=== PATIENT | male | born 1985 | race Caucasian/White ===

== ENCOUNTER 2017-07-13 07:25 | Emergency (ER) | payer OTHER ==
[2017-07-13] MEDS ORDERED: ACETAMINOPHEN 325 MG TABLET PO ONE (07:33)
[2017-07-13] MEDS ORDERED: OXYCODONE HCL IR 5 MG TABLET PO ONE (07:47)
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
[2017-07-13 09:58] VITALS: BP 126/63
== END 2017-07-13 09:57 | disposition home or self-care (01) ==
LOC: ER 07:25
DX: S00.83XA Contusion of other part of head, initial encounter (principal); S00.91XA Abrasion of unspecified part of head, initial encounter; M54.5 Low back pain; M79.671 Pain in right foot; M79.672 Pain in left foot; V49.49XA Driver injured in collision with other motor vehicles in traffic accident, initial encounter
CPT/HCPCS: 72070; 72100; 99283

== ENCOUNTER 2017-11-23 00:08 | Emergency (ER) | payer SELFPAY ==
--- NOTE | 2017-11-23 00:35 | ER Document Report ---
ED General - General Chief Complaint: Overdose Stated Complaint: RESPIRATORY DISTRESS Time Seen by Provider: 11/23/17 00:33 Notes: Patient is a 32-year-old male without chronic medical problems who presents after an opiate overdose. The patient was apparently found unresponsive, centrally cyanotic. Bystanders are doing chest compressions but EMS reports that the patient had a pulse on their initial assessment. 2 mg of naloxone was administered and the patient immediately began breathing normally and became alert, oriented and responsive. The patient denies any use of opiates today. The patient states that he only smoked marijuana. In the setting of privacy, I continue to press the patient regarding this report particularly given that his response to naloxone in the setting of his initial symptoms is pathognomonic for opiate overdose. The patient continues to state the only thing that he did smoke marijuana today. He does admit to intermittent abuse of Percocet. He denies taking any pills today. He does admit to alcohol use today. He denies any current symptoms other than feeling dehydrated. History is otherwise somewhat limited from the patient as he does not recall the events prior to arrival. He currently denies any shortness of breath, chest pain, headache or neck pain. No focal weakness or numbness. Nothing improves or worsens his symptoms. TRAVEL OUTSIDE OF THE [place] IN LAST 30 DAYS: No - Related Data Allergies/Adverse Reactions: amoxicillin Allergy (Mild, Verified 07/13/17 08:03) Hives Past Medical History - General Information source: Patient - Social History Smoking Status: Current Every Day Smoker Frequency of alcohol use: Occasional Drug Abuse: Marijuana, Prescription drugs Family History: Reviewed & Not Pertinent Renal/ Medical History: Denies: Hx Peritoneal Dialysis Past Surgical History: Reports: Hx Appendectomy - Immunizations Hx Diphtheria, Pertussis, Tetanus Vaccination: Yes Review of Systems - Review of Systems Notes: Constitutional: Negative for fever. HENT: Negative for sore throat. Eyes: Negative for visual changes. Cardiovascular: Negative for chest pain. Respiratory: Negative for shortness of breath. Gastrointestinal: Negative for abdominal pain, vomiting or diarrhea. Genitourinary: Negative for dysuria. Musculoskeletal: Negative for back pain. Skin: Negative for rash. Neurological: Negative for headaches, weakness or numbness. 10 point ROS negative except as marked above and in HPI. Physical Exam - Vital signs Vitals: Resp BP Pulse Ox 16 160/96 H 97 11/23/17 00:14 08/26/18 00:14 11/23/17 00:14 Interpretation: Tachycardic Notes: PHYSICAL EXAMINATION: GENERAL: Appears somewhat fatigued but in no distress HEAD: Atraumatic, normocephalic. EYES: Pupils equal round and reactive to light, extraocular movements intact, sclera anicteric, conjunctiva are normal. ENT: nares patent, oropharynx clear without exudates. Dry mucous membranes. NECK: Normal range of motion, supple without lymphadenopathy LUNGS: Breath sounds clear to auscultation bilaterally and equal. No wheezes rales or rhonchi. HEART: Regular tachycardia without murmurs ABDOMEN: Soft, nontender, normoactive bowel sounds. No guarding, no rebound. No masses appreciated. EXTREMITIES: Normal range of motion, no pitting or edema. No cyanosis. NEUROLOGICAL: No focal neurological deficits. Moves all extremities spontaneously and on command. PSYCH: Normal mood, normal affect. SKIN: Warm, Dry, normal turgor, no rashes or lesions noted. Course - Re-evaluation Re-evalutation: 11/23/17 00:33 Patient presents after an acute opiate overdose, reversed in the field by EMS with naloxone. Patient continuously denies opiate use despite being directly confronted with that he was apneic and required Narcan and had a significant response to this medication. Patient presents nontoxic in appearance, in no distress. I had an extensive conversation with the patient about the dangers opiate abuse, have emphasized that they are never going to be certain what they are self administering particularly given the high rates of fentanyl in our community. Rehab resources have been offered. No indication for labs or imaging. Patient has remained awake, alert, oriented without any evidence of somnolence, hypoventilation or bradycardia to suggest ongoing opiate intoxication that would warrant further observation. At this time will discharge with return precautions and follow-up recommendations. Verbal discharge instructions given a the bedside and opportunity for questions given. Medication warnings reviewed. Patient is in agreement with this plan and has verbalized understanding of return precautions and the need for primary care follow-up in the next 24-72 hours. 11/23/17 02:50 - Vital Signs Vital signs: Temp Pulse Resp BP Pulse Ox 13 132/88 H 95 11/23/17 02:30 11/23/17 02:00 11/23/17 02:30 - EKG Interpretation by Me Additional EKG results interpreted by me: 11/23/17 02:50 Sinus tachycardia. Rate 115. No ST elevations or depressions. QTC is 437. Discharge - Discharge Clinical Impression: Dehydration Opiate overdose Qualifiers: Encounter type: initial encounter Injury intent: undetermined intent Qualified Code(s): T40.604A - Poisoning by unspecified narcotics, undetermined, initial encounter Condition: Stable Disposition: HOME, SELF-CARE Additional Instructions: You were seen today for an opiate overdose. Please never use opiates of any kind. Over 190 people every day in the [place] from opiate overdoses. Do not become a statistic. You should urgently seek rehab or a similar resource. You can call 0-317-226-NsGene to find local resources. Return if you have any symptoms that are concerning to you including difficulty breathing, fever, persistent vomiting, or any other symptoms that are concerning to you.
[2017-11-23 02:33] VITALS: BP 132/88
--- NOTE | 2017-11-24 08:12 | EKG REPORT ---
SEVERITY:- BORDERLINE ECG - SINUS TACHYCARDIA BORDERLINE ST ELEVATION, ANTERIOR LEADS : Confirmed by: Sadi Kline MD 24-Nov-2017 08:11:30
== END 2017-11-23 02:46 | disposition home or self-care (01) ==
LOC: ER 00:08
DX: T40.601A Poisoning by unspecified narcotics, accidental (unintentional), initial encounter (principal); E86.0 Dehydration; R00.0 Tachycardia, unspecified; F17.200 Nicotine dependence, unspecified, uncomplicated; Z88.0 Allergy status to penicillin
CPT/HCPCS: 93005; 93010; 99285

== ENCOUNTER 2018-07-21 18:56 | Emergency (ER) | payer SELFPAY ==
[2018-07-21] MEDS ORDERED: HYDROCODONE/ACETAMINOPHEN 5-325 MG (6 TAB/ER DISP) PO PRN (20:52)
[2018-07-21] MEDS ORDERED: IBUPROFEN 800 MG TABLET PO ONE (20:52)
[2018-07-21] MEDS ORDERED: SULFAMETHOXAZOLE/TRIMETHOPRIM 800-160 MG TABLET PO ONE (20:55)
[2018-07-21] MEDS ORDERED: HYDROCODONE/ACETAMINOPHEN 5-325 MG TABLET PO ONE (20:56)
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
[2018-07-21 21:15] VITALS: BP 133/76
== END 2018-07-21 21:18 | disposition home or self-care (01) ==
LOC: ER 18:56
DX: L01.00 Impetigo, unspecified (principal); M54.41 Lumbago with sciatica, right side; M79.604 Pain in right leg; M25.561 Pain in right knee; F17.200 Nicotine dependence, unspecified, uncomplicated
CPT/HCPCS: 99283

== ENCOUNTER 2018-09-11 01:55 | Observation (INO) | payer SELFPAY ==
[2018-09-11] MEDS ORDERED: ONDANSETRON HCL INJ/PF 4 MG/2 ML SDV IV ONE ×2 (02:30→03:39)
--- NOTE | 2018-09-11 02:30 | ER Document Report ---
ED General <EMELY FINK E - Last Filed: 09/11/18 05:32> - General TRAVEL OUTSIDE OF THE [place] IN LAST 30 DAYS: No <SILVIA LORENZ C - Last Filed: 09/11/18 12:31> - General Chief Complaint: Possible Overdose Stated Complaint: POSSIBLE OVERDOSE, HEADACHE Time Seen by Provider: 09/11/18 02:21 Notes: Patient is a 33-year-old male that presents to the emergency department for chief complaint of potential syncopal episode versus overdose. Patient apparently was by EMS, unresponsive, cyanotic, he was given bystander CPR but apparently to have a pulse, and was given a total of 3 mg of Narcan, and he is more responsive and alert, he did vomit, is now complaining of a headache. He denies using illicit drugs, adamantly denies using any opiates. He states he does smoke cigarettes he did drink some alcohol this evening, but only about 36 ounces. He states he was sleeping, he woke up he was surrounded by the paramedics. He does not recall any other events. She has had episodes like this in the past, where he is passed out but unresponsive, and is not sure of th e cause. Apparently his girlfriend who called EMS, per EMS they did not think that the Narcan was the contributing factor to him improving, but from providing supplemental oxygen. Past Medical History: Chronic pancreatitis Past Surgical History: Appendectomy Social History: Admits to smoking cigarettes and occasional alcohol use, admits marijuana use, denies any other illicit drug use. Family History: Reviewed and noncontributory for presenting illness Allergies: Reviewed, see documented allergy list. REVIEW OF SYSTEMS: Other than noted above, the 12 point review of systems was reviewed with the patient and were negative, all pertinent findings are included in the HPI. PHYSICAL EXAMINATION: Vital signs reviewed, nursing noted reviewed. GENERAL: Patient is awake, oriented, in no acute distress HEAD: Atraumatic, normocephalic. EYES: Eyes appear normal, extraocular movements intact, sclera anicteric, conjunctiva are normal. ENT: nares patent, oropharynx clear without exudates. Moist mucous membranes. NECK: Normal range of motion, supple without lymphadenopathy LUNGS: Breath sounds clear to auscultation bilaterally and equal. No wheezes rales or rhonchi. HEART: Heart rate tachycardic, regular rhythm, no audible murmurs ABDOMEN: Soft, nontender, normoactive bowel sounds. No rebound, guarding, or rigidity. No masses appreciated. EXTREMITIES: Nontender, good range of motion, no pitting or edema. NEUROLOGICAL: No focal neurological deficits. Moves all extremities spontaneously Motor and sensory grossly intact on exam. PSYCH: Normal mood, normal affect. SKIN: Warm, Dry, normal turgor, no rashes or lesions noted on exposed skin (SILVIA LORENZ) - Related Data Allergies/Adverse Reactions: amoxicillin Allergy (Mild, Verified 07/13/17 08:03) Hives Past Medical History - Social History Smoking Status: Current Every Day Smoker Family History: Reviewed & Not Pertinent Renal/ Medical History: Denies: Hx Peritoneal Dialysis Past Surgical History: Reports: Hx Appendectomy - Immunizations Hx Diphtheria, Pertussis, Tetanus Vaccination: Yes <SILVIA LORENZ - Last Filed: 09/11/18 12:31> - Vital signs Vitals: Temp Resp BP Pulse Ox 98.6 F 12 147/93 H 94 09/11/18 02:02 09/11/18 02:02 09/11/18 02:02 09/11/18 02:02 Course - Laboratory Result Diagrams: 09/11/18 02:25 09/11/18 02:25 <EMELY FINK - Last Filed: 09/11/18 05:32> - Laboratory Result Diagrams: 09/11/18 02:25 09/11/18 02:25 <SILVIA LORENZ - Last Filed: 09/11/18 12:31> - Re-evaluation Re-evalutation: Patient seen and examined vital signs reviewed. Laboratory data and/or imaging were ordered as appropriate for the patient's presenting symptoms and complaint, with consideration of any critical or life threatening conditions that may be associated with their obtained history and exam as noted above. Patient's prior visits reviewed, patient had a suspected opiate overdose, almost a year ago, but did not have blood work or urine testing at the time of confirming, patient adamantly denies that he is never used hard drugs, he states that he rarely smokes marijuana, he admits that he takes Adderall on occasion, but denies using methamphetamines. Patient was treated with IV fluids Results were reviewed when available and demonstrated slightly elevated troponin, will order repeat, head CT negative, patient's history is concerning, as having frequent syncopal episodes, and was found hypoxic by EMS today and nearly unresponsive, and feel that this should be worked up sooner than later and have the patient admitted to the hospital for syncopal evaluation, and seen by cardiology which the patient was agreeable to. The patient was re-evaluated and was stable, still mild tachycardia, but improved. Evaluation was most consistent with syncope and respiratory arrest, patient improved after given supplemental oxygen, and IVF, however as noted his story is concerning and he has had other syncopal episodes according to his father when he did not seek medical attention. He has not had history of seizures, nor they have been reported in the past, but this is also a possibility. At this point I feel the patient should be observed in the hospital for further evaluation and treatment as his story and events that occurred are concerning. Patient was agreeable, call was placed to the hospitalist for admission. Awaiting call back I signed this patient out to my colleague Dr. Jacki Fink, to admit for syncope, and apneic episode. *Note is created using voice recognition software and may contain spelling, syntax or grammatical errors. Laboratory 09/11/18 09/11/18 09/11/18 02:25 02:25 02:25 WBC 10.5 RBC 5.18 Hgb 15.3 Hct 44.5 MCV 86 MCH 29.6 MCHC 34.5 RDW 13.2 Plt Count 330 Seg Neutrophils % 82.7 H Lymphocytes % 10.6 L Monocytes % 6.2 Eosinophils % 0.1 Basophils % 0.4 Absolute Neutrophils 8.7 H Absolute Lymphocytes 1.1 Absolute Monocytes 0.6 Absolute Eosinophils 0.0 Absolute Basophils 0.0 Sodium 139.7 Potassium 4.1 Chloride 102 Carbon Dioxide 26 Anion Gap 12 BUN 8 Creatinine 0.95 Est GFR ( Amer) > 60 Est GFR (Non-Af Amer) > 60 Glucose 168 H Calcium 8.6 Total Bilirubin 0.4 Direct Bilirubin 0.3 Neonat Total Bilirubin Not Reportable Neonat Direct Bilirubin Not Reportable Neonat Indirect Bili Not Reportable AST 21 ALT 22 Alkaline Phosphatase 84 Creatine Kinase 76 Troponin I 0.034 Total Protein 7.1 Albumin 4.2 Urine Color Urine Appearance Urine pH Ur Specific [place] Urine Protein Urine Glucose (UA) Urine Ketones Urine Blood Urine Nitrite Urine Bilirubin Urine Urobilinogen Ur Leukocyte Esterase Urine WBC (Auto) Urine RBC (Auto) U Hyaline Cast (Auto) Squamous Epi Cells Auto U Non-Squamous Epis Auto Urine Mucus (Auto) Urine Ascorbic Acid Urine Opiates Screen Urine Methadone Screen Ur Barbiturates Screen Ur Phencyclidine Scrn Ur Amphetamines Screen U Benzodiazepines Scrn Urine Cocaine Screen U Marijuana (THC) Screen 09/11/18 09/11/18 03:45 03:45 WBC RBC Hgb Hct MCV MCH MCHC RDW Plt Count Seg Neutrophils % Lymphocytes % Monocytes % Eosinophils % Basophils % Absolute Neutrophils Absolute Lymphocytes Absolute Monocytes Absolute Eosinophils Absolute Basophils Sodium Potassium Chloride Carbon Dioxide Anion Gap BUN Creatinine Est GFR ( Amer) Est GFR (Non-Af Amer) Glucose Calcium Total Bilirubin Direct Bilirubin Neonat Total Bilirubin Neonat Direct Bilirubin Neonat Indirect Bili AST ALT Alkaline Phosphatase Creatine Kinase Troponin I Total Protein Albumin Urine Color YELLOW Urine Appearance CLOUDY Urine pH 5.0 Ur Specific [place] 1.019 Urine Protein 100 H Urine Glucose (UA) NEGATIVE Urine Ketones NEGATIVE Urine Blood NEGATIVE Urine Nitrite NEGATIVE Urine Bilirubin NEGATIVE Urine Urobilinogen NEGATIVE Ur Leukocyte Esterase NEGATIVE Urine WBC (Auto) 54 Urine RBC (Auto) 5 U Hyaline Cast (Auto) 135 Squamous Epi Cells Auto 3 U Non-Squamous Epis Auto 2 Urine Mucus (Auto) MANY Urine Ascorbic Acid NEGATIVE Urine Opiates Screen NEGATIVE Urine Methadone Screen NEGATIVE Ur Barbiturates Screen NEGATIVE Ur Phencyclidine Scrn NEGATIVE Ur Amphetamines Screen UNCONFIRMED POSITIVE U Benzodiazepines Scrn NEGATIVE Urine Cocaine Screen NEGATIVE U Marijuana (THC) Screen NEGATIVE Head CT 09/11/18 02:29 IMPRESSION: No acute intracranial abnormalities. 09/11/18 12:29 (SILVIA LORENZ) - Vital Signs Vital signs: Temp Pulse Resp BP Pulse Ox 97.9 F 96 16 132/77 H 98 09/11/18 08:28 09/11/18 08:28 09/11/18 08:28 09/11/18 08:28 09/11/18 08:28 - Laboratory Laboratory results interpreted by me: 09/11/18 09/11/18 09/11/18 02:25 02:25 03:45 Seg Neutrophils % 82.7 H Lymphocytes % 10.6 L Absolute Neutrophils 8.7 H Glucose 168 H Urine Protein 100 H - EKG Interpretation by Me Additional EKG results interpreted by me: EKG demonstrates ventricular rate of 106 bpm, normal axis, QTC 447 ms, no eviden ce of acute ischemia, compared with prior EKG from 11/23/2017, without significant change. (SILVIA LORENZ) Discharge - Discharge Admitting Provider: Shira (Hospitalist) Unit Admitted: IMCU <EMELY FINK - Last Filed: 09/11/18 05:32> <SILVIA LORENZ - Last Filed: 09/11/18 12:31> - Discharge Clinical Impression: Apnea Syncope Qualifiers: Syncope type: unspecified Qualified Code(s): R55 - Syncope and collapse Headache Qualifiers: Headache type: unspecified Headache chronicity pattern: acute headache Intractability: not intractable Qualified Code(s): R51 - Headache Condition: Stable Disposition: ADMITTED INPATIENT
[2018-09-11 02:34] LABS: ABSOLUTE LYMPHOCYTES (AUTO) 1.1 10^3/uL (0.5-4.7); ABSOLUTE MONOCYTES (AUTO) 0.6 10^3/uL (0.1-1.4); ABSOLUTE NEUT (AUTO) 8.7 10^3/uL (1.7-8.2); BASOPHILS % (AUTO) 0.4 % (0-2); EOSINOPHILS % (AUTO) 0.1 % (0-6); HEMATOCRIT 44.5 % (37.9-51.0); HEMOGLOBIN 15.3 g/dL (13.5-17.0); LYMPHOCYTES % (AUTO) 10.6 % (13-45); MEAN CORPUSCULAR HEMOGLOBIN 29.6 pg (27.0-33.4); MEAN CORPUSCULAR HGB CONC 34.5 g/dL (32.0-36.0); MEAN CORPUSCULAR VOLUME 86 fl (80-97); MONOCYTES % (AUTO) 6.2 % (3-13); PLATELET COUNT 330 10^3/uL (150-450); RED BLOOD COUNT 5.18 10^6/uL (4.35-5.55); RED CELL DISTRIBUTION WIDTH 13.2 % (11.5-14.0); SEGMENTED NEUTROPHILS % (AUTO) 82.7 % (42-78); TOTAL CELLS COUNTED % (AUTO) 100 %; WHITE BLOOD COUNT 10.5 10^3/uL (4.0-10.5)
[2018-09-11] MEDS: RINGERS SOLUTION,LACTATED 1,000 ML IV PRN ×2 (02:47→02:53)
[2018-09-11 02:58] LABS: ALANINE AMINOTRANSFERASE 22 U/L (21-72); ALBUMIN 4.2 g/dL (3.5-5.0); ALKALINE PHOSPHATASE 84 U/L (38-126); ANION GAP 12 (5-19); ASPARTATE AMINO TRANSFERASE 21 U/L (17-59); BILIRUBIN,DIRECT 0.3 mg/dL (0.0-0.4); BILIRUBIN,TOTAL 0.4 mg/dL (0.2-1.3); BLOOD UREA NITROGEN 8 mg/dL (7-20); CALCIUM 8.6 mg/dL (8.4-10.2); CARBON DIOXIDE 26 mmol/L (22-30); CHLORIDE 102 mmol/L (98-107); CREATINE KINASE 76 U/L (55-170); GLUCOSE 168 mg/dL (75-110); POTASSIUM 4.1 mmol/L (3.6-5.0); SODIUM 139.7 mmol/L (137-145); TOTAL PROTEIN 7.1 g/dL (6.3-8.2)
--- NOTE | 2018-09-11 03:43 | RADIOLOGY REPORT (SQ) ---
EXAM DESCRIPTION: CT HEAD WITHOUT IV CONTRAST COMPLETED DATE/TME: 09/11/2018 02:29 CLINICAL HISTORY: 33 years, Male, headache, syncope COMPARISON: None Available. Technique: Contiguous axial images of the brain were obtained without the administration of intravenous contrast. Coronal and sagittal reformats obtained and reviewed. This exam was performed according to our departmental dose-optimization program which includes use of Automated Exposure Control, adjustment of the mA and/or kV according to patient size and/or use of iterative reconstruction technique. Findings: Brain: No hemorrhage. No territorial infarct. No mass effect. No herniation. Ventricles: Within normal limits for patient's age. Bones: No acute osseous abnormality. Paranasal sinuses: Mucous retention cyst in the right maxillary sinus.. Mastoid air cells: Unremarkable. Soft tissues: No acute abnormality. IMPRESSION: No acute intracranial abnormalities.
[2018-09-11 04:21] LABS: APPEARANCE,URINE CLOUDY; BILIRUBIN,URINE NEGATIVE (NEGATIVE); COLOR,URINE YELLOW; GLUCOSE, URINE NEGATIVE (NEGATIVE); KETONES,URINE NEGATIVE (NEGATIVE); LEUKOCYTE ESTERASE,URINE NEGATIVE (NEGATIVE); NITRITE,URINE NEGATIVE (NEGATIVE); PROTEIN,URINE 100 mg/dL (NEGATIVE); URINE SPECIFIC GRAVITY 1.019; UROBILINOGEN,URINE NEGATIVE mg/dL (<2.0)
[2018-09-11 04:31] LABS: URINE AMPHETAMINES SCREEN UNCONFIRMED POSITIVE; URINE BARBITURATES SCREEN NEGATIVE; URINE BENZODIAZEPINES SCREEN NEGATIVE; URINE COCAINE SCREEN NEGATIVE; URINE MARIJUANA (THC) SCREEN NEGATIVE; URINE METHADONE SCREEN NEGATIVE; URINE PHENCYCLIDINE SCREEN NEGATIVE
--- NOTE | 2018-09-11 05:22 | RADIOLOGY REPORT (SQ) ---
EXAM DESCRIPTION: XR CHEST 1 VIEW COMPLETED DATE/TME: 09/11/2018 04:51 CLINICAL HISTORY: 33 years, Male, syncope Comparison: None FINDINGS: No focal lung consolidation. No pleural effusion. No pneumothorax. Cardiac and mediastinal silhouette is unremarkable. No acute osseous abnormality. Soft tissues are unremarkable. IMPRESSION: No acute findings. No focal lung consolidation.
[2018-09-11] MEDS ORDERED: ACETAMINOPHEN 325 MG TABLET PO ONE (05:28)
[2018-09-11] MEDS ORDERED: ONDANSETRON HCL INJ/PF 4 MG/2 ML SDV IV PRN (06:56)
[2018-09-11] MEDS ORDERED: MAGNESIUM HYDROXIDE SUSP 30 ML UDCUP PO PRN (06:56)
[2018-09-11] MEDS ORDERED: DOCUSATE SODIUM 100 MG CAPSULE PO PRN (06:56)
[2018-09-11] MEDS ORDERED: TRAMADOL HCL 50 MG TABLET PO PRN (06:56)
--- NOTE | 2018-09-11 06:56 | PDOC H&P ---
History of Present Illness Admission Date/PCP: 09/11/18 05:40 No local PCP Patient complains of: Found unconscious History of Present Illness: CESAR LANDON JR is a 33 year old male who presented to the emergency room via EMS having been found down at home by his girlfriend. His girlfriend noted that he appeared to be cyanotic and initiated CPR with chest compressions and then called EMS. Upon EMS arrival the patient was found to have a pulse but was cyanotic and in respiratory arrest, requiring several rescue breaths to be given by EMS prior to the resumption of spontaneous respiratory effort. Patient was given 3 mg of Narcan before recovering spontaneous respirations and had an ashleigh sis x1 after recovering his spontaneous respiration but prior to his emergency room arrival. At the present time the patient remembers only that he woke up surrounded by paramedics and other persons after laying down on the couch to sleep for a while. He admits having consumed about 36 ounces of beer but denies using any other drugs. He remembers waking from sleep on the couch and walking to get into bed with his girlfriend but apparently he "fell out" before he got into bed. He admits having prior similar "falling out episodes" and has not identified any aggravating or ameliorating factors for his "falling out episodes". The emergency room he was found to have a CT scan which was negative for acute changes chest x-ray which was negative for acute disease and an EKG that showed only mild sinus tachycardia. His urine drug screen was negative for opiates but did show an unconfirmed positive for amphetamine. A blood alcohol level was not performed by the emergency room physician. Patient was subsequently admitted to the hospital for further evaluation and treatment. Past Medical History Cardiac Medical History: Reports: Other - "Falling out episodes" Denies: Coronary Artery Disease, Hypertension Pulmonary Medical History: Denies: Asthma, Chronic Obstructive Pulmonary Disease (COPD), Respiratory Failure EENT Medical History: Denies: Cataracts, Ears - Hearing aids Neurological Medical History: Denies: Hemorrhagic CVA, Ischemic CVA, Multiple Sclerosis, Seizures Endocrine Medical History: Denies: Diabetes Mellitus Type 1, Diabetes Mellitus Type 2, Hyperthyroidism, Hypothyroidism Renal/ Medical History: Denies: Chronic Kidney Disease, Nephrolithiasis Malignancy Medical History: Reports: None GI Medical History: Denies: Cirrhosis, Hepatitis Musculoskeltal Medical History: Denies: Arthritis, Gout Skin Medical History: Denies: Eczema, Psoriasis Psychiatric Medical History: Reports: Substance Abuse, Tobacco Dependency Denies: Alcohol Dependency Traumatic Medical History: Reports: None Hematology: Denies: Anemia, Bleeding Tendencies Infectious Medical History: Reports: Methicillin-Resistant Staph Aureus - And leg wounds secondary to minor injuries received while fishing Past Surgical History Past Surgical History: Reports: Appendectomy Social History Information Source: Patient Lives with: Spouse/Significant other Smoking Status: Current Some Day Smoker Frequency of Alcohol Use: Social - Usually drinks 2 to 3 cans of beer when he drinks but he does not drink on a daily basis. He generally drinks 2 or 3 times per week. Hx Recreational Drug Use: Yes Drugs: Marijuana Hx Prescription Drug Abuse: No - Advance Directive Resuscitation Status: Full Code Surrogate healthcare decision maker:: Anjelica Carter Family History Family History: CAD, Hypertension Parental Family History Reviewed: Yes Children Family History Reviewed: No Sibling(s) Family History Reviewed.: Yes Medication/Allergy Home Medications: Naproxen 500 mg PO BID #20 tablet 02/12/14 Oxycodone HCl/Acetaminophen [Percocet 5-325 mg Tablet] 1 - 2 tab PO ASDIR PRN #15 tablet 02/12/14 Promethazine HCl [Phenergan 25 mg Tablet] 25 mg PO Q4HP PRN #20 tablet 02/22/15 Diazepam [Valium 5 Mg Tablet] 5 mg PO QHS #10 tablet 07/01/15 Cyclobenzaprine HCl [Flexeril 10 mg Tablet] 10 mg PO TIDP PRN #30 tab 07/13/17 Ibuprofen [Motrin 800 mg Tablet] 800 mg PO Q8H PRN #30 tab 07/13/17 Cyclobenzaprine HCl [Flexeril 10 Mg Tablet] 10 mg PO TID #15 tablet 07/21/18 Lidocaine [Lidoderm 5% (700 mg) Transdermal Patch] 1 patch TP DAILY PRN #10 adh..patch 07/21/18 Mupirocin [Bactroban 2% Ointment 22 gm] 1 applic TP TID #22 gm 07/21/18 Naproxen [Naprosyn 250 Nmg Tablet] 1 tab PO BID #14 tablet 07/21/18 Sulfamethoxazole/Trimethoprim [Bactrim Ds Tablet] 1 each PO BID #20 tablet 07/21/18 Allergies/Adverse Reactions: amoxicillin Allergy (Mild, Verified 07/13/17 08:03) Hives Review of Systems Constitutional: ABSENT: chills, fever(s) Eyes: ABSENT: visual disturbances, other - Eye pain Ears: ABSENT: hearing changes, other - Ear pain Nose, Mouth, and Throat: ABSENT: mouth pain, sore throat Cardiovascular: PRESENT: other - Falling out episode, chest compressions were performed at scene. ABSENT: chest pain, dyspnea on exertion, palpitations Respiratory: PRESENT: other - Cyanotic at the scene, required rescue breathing. ABSENT: cough, dyspnea Gastrointestinal: ABSENT: abdominal pain, constipation, diarrhea, nausea, vomiting Genitourinary: ABSENT: dysuria, hematuria Musculoskeletal: ABSENT: back pain, joint swelling, muscle weakness Integumentary: ABSENT: pruritus, rash Neurological: PRESENT: syncope - Falling out episode. ABSENT: confusion, convulsions, focal weakness, memory loss Psychiatric: ABSENT: anxiety, depression Endocrine: ABSENT: cold intolerance, heat intolerance Hematologic/Lymphatic: ABSENT: easy bleeding, easy bruising Physical Exam Vital Signs: Temp Pulse Resp BP Pulse Ox 98.6 F 17 151/82 H 94 09/11/18 02:02 09/11/18 05:01 09/11/18 05:01 09/11/18 05:01 Intake & Output 09/09/18 09/10/18 09/11/18 23:59 23:59 23:59 Intake Total 1100 Balance 1100 General appearance: PRESENT: no acute distress, cooperative Head exam: PRESENT: atraumatic, normocephalic Eye exam: ABSENT: conjunctival injection, scleral icterus Ear exam: PRESENT: normal external ear exam. ABSENT: bleeding, drainage Mouth exam: PRESENT: dry mucosa, neck supple Neck exam: ABSENT: JVD, thyromegaly, tracheal deviation Respiratory exam: PRESENT: clear to auscultation rosmery, symmetrical, unlabored Cardiovascular exam: PRESENT: RRR. ABSENT: bradycardia, clicks, gallop, rubs, tachycardia Pulses: PRESENT: normal radial pulses, normal dorsalis pedis pul Vascular exam: PRESENT: normal capillary refill. ABSENT: pallor GI/Abdominal exam: PRESENT: normal bowel sounds, soft Rectal exam: PRESENT: deferred Extremities exam: ABSENT: joint swelling, pedal edema Musculoskeletal exam: PRESENT: full ROM, normal inspection Neurological exam: PRESENT: alert, oriented to person, oriented to place, oriented to time, oriented to situation, CN II-XII grossly intact. ABSENT: motor sensory deficit Psychiatric exam: PRESENT: appropriate affect, normal mood Skin exam: PRESENT: dry, intact, warm. ABSENT: jaundice, rash, urticaria Results Laboratory Results: 09/11/18 02:25 09/11/18 02:25 09/11/18 09/11/18 09/11/18 02:25 02:25 03:45 WBC 10.5 RBC 5.18 Hgb 15.3 Hct 44.5 MCV 86 MCH 29.6 MCHC 34.5 RDW 13.2 Plt Count 330 Seg Neutrophils % 82.7 H Lymphocytes % 10.6 L Monocytes % 6.2 Eosinophils % 0.1 Basophils % 0.4 Absolute Neutrophils 8.7 H Absolute Lymphocytes 1.1 Absolute Monocytes 0.6 Absolute Eosinophils 0.0 Absolute Basophils 0.0 Sodium 139.7 Potassium 4.1 Chloride 102 Carbon Dioxide 26 Anion Gap 12 BUN 8 Creatinine 0.95 Est GFR ( Amer) > 60 Est GFR (Non-Af Amer) > 60 Glucose 168 H Calcium 8.6 Total Bilirubin 0.4 AST 21 ALT 22 Alkaline Phosphatase 84 Total Protein 7.1 Albumin 4.2 Urine Color YELLOW Urine Appearance CLOUDY Urine pH 5.0 Ur Specific [place] 1.019 Urine Protein 100 H Urine Glucose (UA) NEGATIVE Urine Ketones NEGATIVE Urine Blood NEGATIVE Urine Nitrite NEGATIVE Ur Leukocyte Esterase NEGATIVE Urine WBC (Auto) 54 Urine RBC (Auto) 5 09/11/18 09/11/18 02:25 02:25 Creatine Kinase 76 Troponin I 0.034 Impressions: Head CT 09/11/18 02:29 IMPRESSION: No acute intracranial abnormalities. Chest X-Ray 09/11/18 04:51 IMPRESSION: No acute findings. No focal lung consolidation. Assessment and Plan - Diagnosis (1) Respiratory arrest Is this a current diagnosis for this admission?: Yes Plan: Patient is admitted to the IMCU his vital signs and O2 saturation be monitored closely throughout his hospital course. (2) Syncopal episodes Qualifiers: Syncope type: unspecified Qualified Code(s): R55 - Syncope and collapse Is this a current diagnosis for this admission?: Yes Plan: Patient be admitted to the IM and monitored closely. Continuous cardiac monitoring will be performed and patient will have an echocardiogram performed. Serial cardiac enzymes will be obtained. Serial CBC and metabolic profiles will be followed as will be a magnesium level as part of the assessment of patient's status. (3) Tobacco use disorder, severe, dependence Is this a current diagnosis for this admission?: Yes Plan: Smoking cessation is advised and counseled briefly. Nicotine replacement patches available for patients use. (4) Alcohol abuse Is this a current diagnosis for this admission?: Yes Plan: Patient is advised to cease use of alcohol. - Time Time Spent with patient: 25-34 minutes Smoking Cessation Education: 3 to 10 minutes Anticipated discharge: Home - Inpatient Certification Based on my medical assessment, after consideration of the patient's comorbidities, presenting symptoms, or acuity I expect that the services needed warrant INPATIENT care.: Yes I certify that my determination is in accordance with my understanding of Medicare's requirements for reasonable and necessary INPATIENT services [42 CFR 412.3e].: Yes Medical Necessity: Need Close Monitoring Due to Risk of Patient Decompensation, Need For Continuous Telemetry Monitoring, Need for Neurological Checks, Risk of Complication if Not Cared For in Hospital
[2018-09-11] MEDS ORDERED: NICOTINE 21 MG/24 HR PATCH.TD24 TD PRN (07:03)
[2018-09-11] MEDS ORDERED: ACETAMINOPHEN 325 MG TABLET PO PRN (07:03)
[2018-09-11] MEDS ORDERED: NALBUPHINE HCL INJ 10 MG/1 ML AMPULE IV PRN (07:03)
--- NOTE | 2018-09-11 07:25 | ADVANCED CARE ---
- Diagnosis (1) Respiratory arrest Diagnosis Current: Yes (2) Syncopal episodes Diagnosis Current: Yes (3) Tobacco use disorder, severe, dependence Diagnosis Current: Yes (4) Alcohol abuse Diagnosis Current: Yes Attendance: Patient and myself Resuscitation Status: Full Code Discussion: Patient wishes to be a full code throughout his hospitalization should he develop pain cardiac arrest or respiratory arrest. He wishes for Anjelica Carter to be his surrogate medical decision maker. At the present time he is not interested in discussing a living will. Care Planning Goals: #1 Anjelica Carter is designated as his medical decision surrogate. #2 patient will be a full code throughout his hospital stay Document(s) Completed: Full CODE STATUS is entered into EMR. Anjelica Carter is listed as his medical surrogate decision-maker. Time Spent: 15 minutes
--- NOTE | 2018-09-11 07:42 | EKG REPORT ---
SEVERITY:- OTHERWISE NORMAL ECG - SINUS TACHYCARDIA : Confirmed by: Sadi Kline MD 11-Sep-2018 07:41:17
--- NOTE | 2018-09-11 08:48 | RADIOLOGY REPORT (SQ) ---
EXAM DESCRIPTION: MRI HEAD WITHOUT COMPLETED DATE/TIME: 09/11/2018 8:27 am REASON FOR STUDY: syncopal episode with acute respiratory arrest COMPARISON: CT brain 09/11/2018 TECHNIQUE: Multiplanar imaging includes non-contrasted T1, T2, FLAIR, and diffusion with ADC map seq uences. Images stored on PACS. LIMITATIONS: None. FINDINGS: ANATOMY: No anomalies. Normal vascular flow voids. Pituitary fossa normal. CSF SPACES: Normal in size and contour. No hemorrhage. CEREBRUM: Sulci and gyri normal in size and contour. Normal white matter signal on FLAIR imaging. No evidence of hemorrhage, mass, or extraaxial fluid collection. POSTERIOR FOSSA: No signal alteration. No hemorrhage. No edema, masses or mass effect. Internal corey tory canals, cerebello-pontine angles, mastoids normal. DIFFUSION IMAGING: Negative for acute or sub-acute infarction. ORBITS: No masses. Globes normal. PARANASAL SINUSES: No fluid levels. Mucus or serous retention cyst right maxillary sinus. OTHER: No other significant finding. IMPRESSION: NORMAL MRI OF THE BRAIN WITHOUT INTRAVENOUS GADOLINIUM CONTRAST. EVIDENCE OF ACUTE STROKE: NO. TECHNICAL DOCUMENTATION: JOB ID: [id number] [employer]- All Rights Reserved Reading location - IP/workstation name: [email or web address]
[2018-09-11 10:08] LABS: CREATINE KINASE MB 1.11 ng/mL (<4.55); TROPONIN I 0.06 ng/mL
[2018-09-11] MEDS: FAMOTIDINE 20 MG TABLET PO SCH ×2 (10:38→21:10)
--- NOTE | 2018-09-11 13:10 | XCELERA REPORT ---
[address] [address] Transthoracic Echocardiogram Report Name: BARBI LEVINECESAR JR Age: 33 yrs Gender: Male : 1985 Patient Status: Inpatient Patient Location: [facility]^A Study Date: 09/11/2018 09:07 AM Height: 71 in Weight: 186 lb BSA: 2.0 m2 Procedure: A complete two-dimensional transthoracic echocardiogram was performed (2D, M-mode, spectral and color flow Doppler). The study was technically adequate with some images being suboptimal in quality. Reason For Study: acute syncopal episode with respiratory arrest Ordering Physician: MATTY IBANEZ Performed By: Melissa Molina Interpretation Summary Study quality fair. LVEF appears normal at 60-65%. The right ventricle is mildly dilated but RV systolic function appears normal. The transmitral spectral Doppler flow pattern is normal for age The aortic valve is trileaflet and appears to opens well. There is a trace or physiologic amount of tricuspid regurgitation Right ventricular systolic pressure is normal. There is no pericardial effusion. The aortic root is normal size. The inferior vena cava appeared small and collapsed with respiration (RAP 0-5 mmHg) MMode/2D Measurements & Calculations RVDd: 4.6 cm LVIDd: 5.3 cm FS: 36.8 % Ao root diam: IVSd: 0.82 cm LVIDs: 3.4 cm EDV(Teich): 3.1 cm 137.8 ml Ao root area: LVPWd: 0.93 cm ESV(Teich): 7.5 cm2 46.6 ml LA dimension: EF(Teich): 66.2 % 3.3 cm LVLd ap4: 8.3 cm SV(MOD-sp4): EDV(MOD-sp4): 64.0 ml 100.0 ml LVLs ap4: 6.5 cm ESV(MOD-sp4): 36.0 ml EF(MOD-sp4): 64.0 % Doppler Measurements & Calculations MV E max celestino: MV P1/2t max celestino: Ao V2 max: LV V1 max P.4 cm/sec 85.9 cm/sec 141.9 cm/sec 6.9 mmHg MV A max celestino: MV P1/2t: 63.6 msec Ao max P.1 mmHgLV V1 max: 60.7 cm/sec MVA(P1/2t): 3.5 cm2 131.8 cm/sec MV E/A: 1.4 MV dec slope: 395.7 cm/sec2 MV dec time: 0.22 sec PA V2 max: TR max celestino: MV P1/2t-pr_phl: 113.0 cm/sec 210.4 cm/sec 63.6 msec PA max P.1 mmHgTR max P.7 mmHg Left Ventricle The left ventricular ejection fraction is normal. The transmitral spectral Doppler flow pattern is normal for age. Right Ventricle The right ventricle is mildly dilated. The right ventricular systolic function is normal. Atria The left atrial size is normal. LA volume index 28.9 ml/m2. Mitral Valve The mitral valve is grossly normal. Aortic Valve The aortic valve is trileaflet. The aortic valve opens well. There is a peak gradient of 8 mm of Hg. Tricuspid Valve The tricuspid valve is not well visualized, but is grossly normal. There is a trace or physiologic amount of tricuspid regurgitation. Right ventricular systolic pressure is normal. Pulmonic Valve Partially noted. There is no pulmonic valvular regurgitation. Great Vessels The aortic root is normal size. The inferior vena cava appeared small and collapsed with respiration (RAP 0-5 mmHg). Effusions There is no pericardial effusion. : MATTY IBANEZ Sanjay
[2018-09-11] MEDS: HEPARIN SOD (PORCINE) 5,000 UNIT/ML 1 ML SYRINGE SUBCUT SCH ×2 (15:02→21:10)
[2018-09-11 15:52] LABS: CREATINE KINASE MB 0.85 ng/mL (<4.55); TROPONIN I 0.022 ng/mL
[2018-09-11 21:48] LABS: CREATINE KINASE MB 0.64 ng/mL (<4.55)
[2018-09-11 21:49] LABS: TROPONIN I < 0.012 ng/mL
[2018-09-12] MEDS: HEPARIN SOD (PORCINE) 5,000 UNIT/ML 1 ML SYRINGE SUBCUT SCH (05:20)
[2018-09-12 05:27] LABS: HEMATOCRIT 38.8 % (37.9-51.0); MEAN CORPUSCULAR HEMOGLOBIN 29.6 pg (27.0-33.4); MEAN CORPUSCULAR HGB CONC 34.1 g/dL (32.0-36.0); MEAN CORPUSCULAR VOLUME 87 fl (80-97); PLATELET COUNT 223 10^3/uL (150-450); RED BLOOD COUNT 4.47 10^6/uL (4.35-5.55); RED CELL DISTRIBUTION WIDTH 13.2 % (11.5-14.0)
[2018-09-12 05:39] LABS: HEMOGLOBIN 13.2 g/dL (13.5-17.0)
[2018-09-12 05:48] LABS: ALANINE AMINOTRANSFERASE 17 U/L (21-72); ALBUMIN 3.1 g/dL (3.5-5.0); ALKALINE PHOSPHATASE 80 U/L (38-126); ANION GAP 6 (5-19); ASPARTATE AMINO TRANSFERASE 14 U/L (17-59); BILIRUBIN,DIRECT 0.2 mg/dL (0.0-0.4); BILIRUBIN,TOTAL 1.2 mg/dL (0.2-1.3); BLOOD UREA NITROGEN 7 mg/dL (7-20); CALCIUM 8.8 mg/dL (8.4-10.2); CARBON DIOXIDE 31 mmol/L (22-30); CHLORIDE 100 mmol/L (98-107); CHOLESTEROL 107.71 mg/dL (0-200); GLUCOSE 95 mg/dL (75-110); POTASSIUM 4.7 mmol/L (3.6-5.0); SODIUM 136.8 mmol/L (137-145); TOTAL PROTEIN 5.6 g/dL (6.3-8.2); TRIGLYCERIDES 85 mg/dL (<150)
[2018-09-12 05:59] LABS: DIRECT LDL 43 mg/dL (<100)
[2018-09-12 08:37] VITALS: BP 122/66
[2018-09-12] MEDS: FAMOTIDINE 20 MG TABLET PO SCH (09:52)
--- NOTE | 2018-09-12 14:48 | PDOC DISCHARGE SUMMARY ---
General - Admit/Disc Date/PCP Admission Date/Primary Care Provider: 09/11/18 05:40 Discharge Date: 09/12/18 - Discharge Diagnosis (1) Syncopal episodes Is this a current diagnosis for this admission?: Yes Summary: Work-up here is negative. We are planning on setting him up with a Holter monitor and cardiology follow-up as an outpatient. (2) Alcohol abuse Is this a current diagnosis for this admission?: Yes Summary: He never showed any signs of withdrawal - Additional Information Resuscitation Status: Full Code Discharge Diet: Regular Discharge Activity: Activity As Tolerated Home Medications: No Home Medications 09/11/18 History of Present Illness History of Present Illness: CESAR LANDON JR is a 33 year old male who presented to the emergency room via EMS having been found down at home by his girlfriend. His girlfriend noted that he appeared to be cyanotic and initiated CPR with chest compressions and then called EMS. Upon EMS arrival the patient was found to have a pulse but was cyanotic and in respiratory arrest, requiring several rescue breaths to be given by EMS prior to the resumption of spontaneous respiratory effort. Patient was given 3 mg of Narcan before recovering spontaneous respirations and had an emesis x1 after recovering his spontaneous respiration but prior to his emergency room arrival. At the present time the patient remembers only that he woke up surrounded by paramedics and other persons after laying down on the couch to sleep for a while. He admits having consumed about 36 ounces of beer but denies using any other drugs. He remembers waking from sleep on the couch and walking to get into bed with his girlfriend but apparently he "fell out" before he got into bed. He admits having prior similar "falling out episodes" and has not identified any aggravating or ameliorating factors for his "falling out episodes". The emergency room he was found to have a CT scan which was negative for acute changes chest x-ray which was negative for acute disease and an EKG that showed only mild sinus tachycardia. His urine drug screen was negative for opiates but did show an unconfirmed positive for amphetamine. A blood alcohol level was not performed by the emergency room physician. Patient was subsequently admitted to the hospital for further evaluation and treatment. Hospital Course Hospital Course: His MRI and echocardiogram were unremarkable. He had no events on the surveillance monitor. He had no further such episodes while he was here. He denied use of any substances, save for the Adderall that he bought from someone to take to help keep him awake while he was working the other day. He denied taking anything such as CBD or kratom. Indeed, nothing showed up on his toxicological screen except for the amphetamine, so if he did take anything, it was something that would not show up on our drug screen. Given that his work-up was negative, it was felt that the next step would be to set him up with ambulatory cardiac monitoring. There is arrangements have been made and he will follow-up with cardiology as an outpatient. His labs and examination were reassuring and he was discharged in good condition. Physical Exam Vital Signs: Temp Pulse Resp BP Pulse Ox 97.5 F 88 16 122/66 97 09/12/18 10:13 09/12/18 10:13 09/12/18 10:13 09/12/18 10:13 09/12/18 10:13 Intake & Output 09/11/18 09/12/18 09/13/18 06:59 06:59 06:59 Intake Total 1100 1299 Output Total 0 Balance 1100 1299 Weight 84.2 kg General appearance: PRESENT: no acute distress, cooperative, disheveled Respiratory exam: PRESENT: clear to auscultation rosmery, symmetrical, unlabored. ABSENT: accessory muscle use, chest wall tenderness, crackles, prolonged expiratory phas, rhonchi, tachypnea, wheezes Cardiovascular exam: PRESENT: RRR, +S1, +S2. ABSENT: diastolic murmur, systolic murmur Pulses: PRESENT: normal carotid pulses Vascular exam: PRESENT: normal capillary refill GI/Abdominal exam: PRESENT: normal bowel sounds, soft. ABSENT: distended, guarding, rebound, tenderness Extremities exam: ABSENT: clubbing, pedal edema Musculoskeletal exam: PRESENT: normal inspection. ABSENT: deformity Neurological exam: PRESENT: alert, awake, oriented to person, oriented to place, oriented to time, oriented to situation Psychiatric exam: PRESENT: appropriate affect, normal mood Skin exam: PRESENT: dry, warm Results Laboratory Results: 09/12/18 05:07 09/12/18 05:07 09/12/18 09/12/18 05:07 05:07 WBC 10.0 RBC 4.47 Hgb 13.2 L D Hct 38.8 MCV 87 MCH 29.6 MCHC 34.1 RDW 13.2 Plt Count 223 Sodium 136.8 L Potassium 4.7 Chloride 100 Carbon Dioxide 31 H Anion Gap 6 BUN 7 Creatinine 0.84 Est GFR ( Amer) > 60 Est GFR (Non-Af Amer) > 60 Glucose 95 Calcium 8.8 Total Bilirubin 1.2 AST 14 L ALT 17 L Alkaline Phosphatase 80 Total Protein 5.6 L Albumin 3.1 L Triglycerides 85 Cholesterol 107.71 LDL Cholesterol Direct 43 VLDL Cholesterol 17.0 HDL Cholesterol 59 09/11/18 09/11/18 09/11/18 02:25 02:25 05:10 Creatine Kinase 76 CK-MB (CK-2) Troponin I 0.034 0.094 09/11/18 09/11/18 09/11/18 08:55 08:55 15:10 Creatine Kinase 56 44 L CK-MB (CK-2) 1.11 Troponin I 0.060 09/11/18 09/11/18 09/11/18 15:10 21:00 21:00 Creatine Kinase 45 L CK-MB (CK-2) 0.85 0.64 Troponin I 0.022 < 0.012 Impressions: Head MRI 09/11/18 00:00 IMPRESSION: NORMAL MRI OF THE BRAIN WITHOUT INTRAVENOUS GADOLINIUM CONTRAST. EVIDENCE OF ACUTE STROKE: NO. Head CT 09/11/18 02:29 IMPRESSION: No acute intracranial abnormalities. Chest X-Ray 09/11/18 04:51 IMPRESSION: No acute findings. No focal lung consolidation. Qualifiers - * PATIENT BEING DISCHARGED WITH ANY OF THE FOLLOWING DIAGNOSIS: No Acute Heart Failure - Is this a Heart Failure Patient?: No Plan Time Spent: Greater than 30 Minutes
== END 2018-09-12 10:36 | disposition home or self-care (01) ==
LOC: ER 01:55 → INTOOBSV 05:40 → EH 05:40 → 3N 07:24
PROVIDERS: ADMIT Emergency Medicine; ATTEND Emergency Medicine
PROC: HZ31ZZZ Individual Counseling for Substance Abuse Treatment, Behavioral (ICD-10-PCS; principal; 2018-09-11)
DX: R55 Syncope and collapse (principal); F10.10 Alcohol abuse, uncomplicated; R23.0 Cyanosis; R09.2 Respiratory arrest; R00.0 Tachycardia, unspecified; R11.10 Vomiting, unspecified; R51 Headache; R09.02 Hypoxemia; F15.90 Other stimulant use, unspecified, uncomplicated; Z90.49 Acquired absence of other specified parts of digestive tract; F17.210 Nicotine dependence, cigarettes, uncomplicated; Z82.49 Family history of ischemic heart disease and other diseases of the circulatory system
CPT/HCPCS: 93005; 96376; 99285; 96361; 96374; 36415 ×2; 82553; 82550; 85025; 85027; 80053 ×2; 81001; 84484; 80307; 83036; 80061; 93306; 70551; 71045; 70450; 93010; 99406; G0378 ×2; J1644 ×2; J3490 ×2; J2405; J7120

== ENCOUNTER 2020-01-07 04:36 | Observation (INO) | payer SELFPAY ==
[2020-01-07] MEDS ORDERED: NALOXONE HCL INJ 2 MG/2 ML DISP.SYRIN ONE ×2 (04:41→05:12)
[2020-01-07] MEDS ORDERED: FLUMAZENIL INJ 0.5 MG/5 ML VIAL ONE (04:43)
[2020-01-07] MEDS ORDERED: NALOXONE HCL INJ/PF 0.4 MG/1 ML SDV IV ONE (04:47)
[2020-01-07] MEDS ORDERED: FLUMAZENIL INJ 0.5 MG/5 ML VIAL IV ONE (04:47)
--- NOTE | 2020-01-07 04:52 | ER Document Report ---
ED Psych Disorder / Suicide - General Stated Complaint: POSSIBLE OVER DOSE Time Seen by Provider: 01/07/20 04:47 Mode of Arrival: Medic Information source: Emergency Med Personnel Notes: History of Present Illness FROM August 2018 Rakesh Leonard History of Present Illness: CESAR LANDON JR is a 33 year old male who presented to the emergency room via EMS having been found down at home by his girlfriend. His girlfriend noted that he appeared to be cyanotic and initiated CPR with chest compressions and then called EMS. Upon EMS arrival the patient was found to have a pulse but was cyanotic and in respiratory arrest, requiring several rescue breaths to be given by EMS prior to the resumption of spontaneous respiratory effort. Patient was given 3 mg of Narcan before recovering spontaneous respirations and had an emesis x1 after recovering his spontaneous respiration but prior to his e mergency room arrival. At the present time the patient remembers only that he woke up surrounded by paramedics and other persons after laying down on the couch to sleep for a while. He admits having consumed about 36 ounces of beer but denies using any other drugs. He remembers waking from sleep on the couch and walking to get into bed with his girlfriend but apparently he "fell out" before he got into bed. He admits having prior similar "falling out episodes" and has not identified any aggravating or ameliorating factors for his "falling out episodes". The emergency room he was found to have a CT scan which was negative for acute changes chest x-ray which was negative for acute disease and an EKG that showed only mild sinus tachycardia. His urine drug screen was negative for opiates but did show an unconfirmed positive for amphetamine. A blood alcohol level was not performed by the emergency room physician. Patient was subsequently admitted to the hospital for further evaluation and treatment. Hospital Course Hospital Course: His MRI and echocardiogram were unremarkable. He had no events on the gambling monitor. He had no further such episodes while he was here. He denied use of any substances, save for the Adderall that he bought from someone to take to help keep him awake while he was working the other day. He denied taking anything such as CBD or kratom. Indeed, nothing showed up on his toxicological screen except for the amphetamine, so if he did take anything, it was something that would not show up on our drug screen. Given that his work-up was negative, it was felt that the next step would be to set him up with ambulatory cardiac monitoring. There is arrangements have been made and he will follow-up with brianna sweet as an outpatient. His labs and examination were reassuring and he was discharged in good condition. MY NOTES 34-year-old male arrives by EMS with emergency worker Gene at his main spokesperson after patient was picked up at home after overdosing on narcotics. Patient reports he was out partying with some friends and came home after drinking some alcohol. He denies any narcotic overuse. Gene advised he was speaking to him after first Narcan was given in route by him. The patient said his quarantine officer and he had noted patient had been doing well with narcotic abstinence. Upon arrival patient became somnolent again and required another 2 mg of Narcan to bring him to full awareness of who he is and what year it is. Patient had saturation of 88% on O2. Shortly after receiving Romazicon patient had a bowel movement and continued to have sats around 88%. TRAVEL OUTSIDE OF THE [place] IN LAST 30 DAYS: No - HPI Patient complains to provider of: Overdose Onset: Just prior to arrival Onset was: Cannot confirm Severity: Mild Pain Level: Denies Suicide Risk Factors: Substance abuse Overdose of: Other - narcotic - Related Data Allergies/Adverse Reactions: amoxicillin Allergy (Mild, Verified 07/13/17 08:03) Hives Past Medical History - General Information source: Emergency Med Personnel - Social History Smoking Status: Current Every Day Smoker Cigarette use (# per day): Yes Chew tobacco use (# tins/day): No Smoking Education Provided: Yes Frequency of alcohol use: Heavy Drug Abuse: Heroin Lives with: Family Family History: Reviewed & Not Pertinent Patient has suicidal ideation: No Patient has homicidal ideation: No - Past Medical History Cardiac Medical History: Denies: Hx Coronary Artery Disease, Hx Hypertension Pulmonary Medical History: Denies: Hx Asthma, Hx COPD, Hx Respiratory Failure Neurological Medical History: Denies: Hx Seizures Endocrine Medical History: Denies: Hx Diabetes Mellitus Type 1, Hx Diabetes Mellitus Type 2, Hx Hyperthyroidism, Hx Hypothyroidism Renal/ Medical History: Denies: Hx Peritoneal Dialysis GI Medical History: Denies: Hx Cirrhosis, Hx Hepatitis Musculoskeletal Medical History: Denies Hx Arthritis, Denies Hx Gout Skin Medical History: Denies Hx Eczema, Denies Hx Psoriasis Infectious Medical History: Reports: Hx MRSA - And leg wounds secondary to minor injuries received while fishing. Denies: Hx Hepatitis Past Surgical History: Reports: Hx Appendectomy - Immunizations Hx Diphtheria, Pertussis, Tetanus Vaccination: Yes Review of Systems - Review of Systems Constitutional: See HPI, Weakness EENT: No symptoms reported Cardiovascular: See HPI, Dizziness, Lightheaded Respiratory: No symptoms reported Gastrointestinal: See HPI, Last bowel movement - in room @ 0450 Genitourinary: No symptoms reported Male Genitourinary: No symptoms reported Musculoskeletal: No symptoms reported Skin: No symptoms reported Hematologic/Lymphatic: No symptoms reported Neurological/Psychological: See HPI, Confusion, Weakness, Lost consciousness -: Yes All other systems reviewed and negative Physical Exam - Vital signs Vitals: Resp Pulse Ox 33 H 77 L 01/07/20 04:40 01/07/20 04:40 Interpretation: Tachycardic, Hypoxic, Tachypneic - General General appearance: Lethargic, Other - But easily answers questions and oriented to person and date. - HEENT Head: Normocephalic, Atraumatic Eyes: Normal Pupils: PERRL - Respiratory Respiratory status: No respiratory distress Chest status: Nontender Breath sounds: Normal Chest palpation: Normal - Cardiovascular Rhythm: Regular Heart sounds: Normal auscultation Murmur: No - Abdominal Inspection: Normal Distension: No distension Bowel sounds: Normal Tenderness: Nontender Organomegaly: No organomegaly - Rectal Tenderness: No - Passed brown stool in room. - Genitourinary Tenderness: Nontender Scrotum: Normal - Back Back: Normal, Nontender - Extremities General upper extremity: Normal inspection, Nontender, Normal color, Normal ROM, Normal temperature General lower extremity: Normal inspection, Nontender, Normal color, Normal ROM, Normal temperature, Normal weight bearing. No: Quintin's sign - Neurological Neuro grossly intact: Yes Cognition: Normal Orientation: AAOx4 Ruslan Coma Scale Eye Opening: Spontaneous [place] Coma Scale Verbal: Oriented [place] Coma Scale Motor: Obeys Commands [place] Coma Scale Total: 15 Speech: Normal Motor strength normal: LUE, RUE, LLE, RLE Sensory: Normal - Psychological Associated symptoms: Normal affect, Normal mood - Skin Skin Temperature: Warm Skin Moisture: Moist Skin Color: Halls Course - Vital Signs Vital signs: Temp Pulse Resp BP Pulse Ox 25 H 111/71 98 01/07/20 06:01 01/07/20 06:00 01/07/20 06:01 - Laboratory Result Diagrams: 01/07/20 05:15 01/07/20 05:15 Laboratory results interpreted by me: 01/07/20 05:15 WBC 17.4 H Plt Count 461 H Lymph % (Auto) 7.6 L Frontier % (Auto) 2.7 L Absolute Neuts (auto) 15.6 H Seg Neutrophils % 89.7 H - Diagnostic Test Radiology reviewed: Reports reviewed - Severe interstitial edema - EKG Interpretation by Me EKG shows normal: Sinus rhythm Rate: Tachycardia Rhythm: NSR - Patient with heart rate 130 with nonspecific T wave abnormalities and borderline left axis deviation and 130 tachycardia sinus Critical Care Note - Critical Care Note Comments: I discussed his case with for such he at 0 510 and he advises no admission to IMCU with Narcan drip. I spoke with Dr. Laura Andrade at 0 [phone] and she will see the patient. Patient advises he drinks [place] Light but denies any n arcotic use. Discharge - Discharge Clinical Impression: COVID-19 virus test result unknown, Alcohol abuse Narcotic overdose Qualifiers: Encounter type: initial encounter Injury intent: accidental or unintentional Qualified Code(s): T40.601A - Poisoning by unspecified narcotics, accidental (unintentional), initial encounter Condition: Serious Disposition: ADMITTED INPATIENT Unit Admitted: ICU Additional Instructions: Bed for this patient ICU
[2020-01-07] MEDS ORDERED: DEXAMETHASONE SOD PHOS INJ 10 MG/1 ML VIAL IV ONE (05:14)
[2020-01-07] MEDS ORDERED: FAMOTIDINE INJ/PF 20 MG/2 ML SDV IV ONE (05:14)
[2020-01-07] MEDS ORDERED: AZITHROMYCIN INJ 500 MG VIAL IV ONE (05:15)
[2020-01-07] MEDS ORDERED: ONDANSETRON HCL INJ/PF 4 MG/2 ML SDV IV ONE (05:28)
[2020-01-07] MEDS ORDERED: ONDANSETRON HCL INJ/PF 4 MG/2 ML SDV ONE (05:28)
[2020-01-07] MEDS ORDERED: BUMETANIDE INJ/PF 1 MG/4 ML SDV IV ONE (05:34)
[2020-01-07] MEDS ORDERED: NORMAL SALINE 500 ML with NALOXONE HCL 2 MG IV PRN ×2 (05:49)
[2020-01-07 06:04] LABS: ABSOLUTE LYMPHOCYTES (AUTO) 1.3 10^3/uL (0.5-4.7); ABSOLUTE MONOCYTES (AUTO) 0.5 10^3/uL (0.1-1.4); ABSOLUTE NEUT (AUTO) 15.6 10^3/uL (1.7-8.2); HEMATOCRIT 45.1 % (37.9-51.0); HEMOGLOBIN 15.2 g/dL (13.5-17.0); LYMPHOCYTES % (AUTO) 7.6 % (13-45); MEAN CORPUSCULAR HEMOGLOBIN 29.6 pg (27.0-33.4); MEAN CORPUSCULAR HGB CONC 33.7 g/dL (32.0-36.0); MEAN CORPUSCULAR VOLUME 88 fl (80-97); MONOCYTES % (AUTO) 2.7 % (3-13); PLATELET COUNT 461 10^3/uL (150-450); RED BLOOD COUNT 5.13 10^6/uL (4.35-5.55); RED CELL DISTRIBUTION WIDTH 13.4 % (11.5-14.0); SEGMENTED NEUTROPHILS % (AUTO) 89.7 % (42-78); TOTAL CELLS COUNTED % (AUTO) 100 %; WHITE BLOOD COUNT 17.4 10^3/uL (4.0-10.5)
--- NOTE | 2020-01-07 06:22 | RADIOLOGY REPORT (SQ) ---
EXAM DESCRIPTION: XR CHEST 1 VIEW COMPLETED DATE/TME: 01/07/2020 04:48 CLINICAL HISTORY: 34 years, Male, overdose COMPARISON: 09/11/2018 NUMBER OF VIEWS: One TECHNIQUE: AP view the chest LIMITATIONS: None. FINDINGS: There are diffuse bilateral airspace opacities, worse within the left lung. The heart is normal in size. No pneumothorax or pleural effusion. Bones are unremarkable. IMPRESSION: Diffuse bilateral airspace opacities, worse within the left lung. This may be due to edema or pneumonia. copyright 2010 [employer]- All Rights Reserved
[2020-01-07 06:28] LABS: ALBUMIN 3.6 g/dL (3.5-5.0); ALCOHOL 32 mg/dL (NONE DETECTED); ALKALINE PHOSPHATASE 87 U/L (38-126); ANION GAP 16 (5-19); ASPARTATE AMINO TRANSFERASE 39 U/L (17-59); BILIRUBIN,DIRECT 0.2 mg/dL (0.0-0.4); BILIRUBIN,TOTAL 0.6 mg/dL (0.2-1.3); BLOOD UREA NITROGEN 19 mg/dL (7-20); CALCIUM 9.4 mg/dL (8.4-10.2); CARBON DIOXIDE 20 mmol/L (22-30); CHLORIDE 98 mmol/L (98-107); GLUCOSE 99 mg/dL (75-110); POTASSIUM 4.2 mmol/L (3.6-5.0); TOTAL PROTEIN 6.3 g/dL (6.3-8.2)
[2020-01-07 06:33] LABS: ACETAMINOPHEN < 10 ug/mL (10-30); SALICYLATE < 1.0 mg/dL (2.0-20.0)
[2020-01-07 06:38] LABS: TROPONIN I 0.099 ng/mL
--- NOTE | 2020-01-07 07:25 | Progress Note ---
Provider Note Provider Note: Evaluated patient for possible ICU admission. Patient came in via EMS possibly d/t overdose. Per ED, patient was unresponsive but responded with couple doses of narcan in route. Patient received more couple doses in narcan and ED decided to start narcan drip. Patient is awake, alert, oriented, mentating very well. Discussed with the ED doctor to stop the Narcan drip and re-evaluate patient status in couple of hours. Patient does not need to be admitted in ICU at this time.
[2020-01-07 08:10] LABS: APPEARANCE,URINE CLEAR; BILIRUBIN,URINE NEGATIVE (NEGATIVE); COLOR,URINE YELLOW; GLUCOSE, URINE NEGATIVE (NEGATIVE); KETONES,URINE NEGATIVE (NEGATIVE); LEUKOCYTE ESTERASE,URINE NEGATIVE (NEGATIVE); NITRITE,URINE NEGATIVE (NEGATIVE); PROTEIN,URINE NEGATIVE (NEGATIVE); URINE SPECIFIC GRAVITY 1.009; UROBILINOGEN,URINE NEGATIVE mg/dL (<2.0)
[2020-01-07 08:41] LABS: URINE AMPHETAMINES SCREEN NEGATIVE; URINE BARBITURATES SCREEN NEGATIVE; URINE BENZODIAZEPINES SCREEN NEGATIVE; URINE COCAINE SCREEN NEGATIVE; URINE MARIJUANA (THC) SCREEN NEGATIVE; URINE METHADONE SCREEN NEGATIVE; URINE PHENCYCLIDINE SCREEN NEGATIVE
[2020-01-07] MEDS ORDERED: NORMAL SALINE 1000 ML 1,000 ML IV PRN (09:47)
[2020-01-07] MEDS ORDERED: MAG HYDROX/AL HYDROX/SIMETH SUSP 30 ML UDCUP PO PRN (09:47)
[2020-01-07] MEDS ORDERED: ALBUTEROL SULFATE 0.083% NEB 2.5 MG/3 ML AMPUL NEB PRN (09:47)
[2020-01-07] MEDS ORDERED: ACETAMINOPHEN 325 MG TABLET PO PRN (09:47)
[2020-01-07] MEDS ORDERED: ONDANSETRON HCL INJ/PF 4 MG/2 ML SDV IV PRN (09:47)
[2020-01-07] MEDS ORDERED: DOCUSATE SODIUM 100 MG/10 ML UDC PO SCH (10:00)
[2020-01-07] MEDS ORDERED: CEFTRIAXONE 1 GM/D5W RTU 1 GM/50 ML RTUPB IV SCH (10:00)
[2020-01-07] MEDS ORDERED: NICOTINE 7 MG/24 HR PATCH.TD24 TD PRN (10:14)
--- NOTE | 2020-01-07 10:23 | PDOC H&P ---
History of Present Illness Admission Date/PCP: 01/07/20 07:38 Patient complains of: opiate overdose History of Present Illness: CESAR LANDON JR is a 34 year old male with a past medical history of opiate, alcohol, and tobacco abuse w/ prior Opiate Overdose who presented to the emergency department today via EMS for AMS and acute respiratory failure that would improve briefly following Narcan push and ultimately requiring Narcan drip x2 hours. Patient did have multiple episodes of emesis this morning. At this time, patient is A&Ox4, though w/ continued fatigue and unable to recall events leading up to admission this morning. He does admit to heavily drinking alcohol with friends but denies recreational drug use. Patient emergency department revealed initial tachycardia, hypotension, tachypnea, and hypoxia. Laboratory evaluation revealed leukocytosis (WBC 17.4), thrombocytosis (PLT 461), unremarkable chemistry, elevated troponin of 0.099, negative urinalysis, UDS positive for opiates and a serum EtOH of 32. COVID testing pending. EKG showed sinus tachycardia and chest x-ray revealed diffuse bilateral airspace opacities; increased on the left. Patient has now been off the Narcan drip x2 hours; he is referred to the hospitalist service for further evaluation and management of the above stated complaints and findings. Past Medical History Cardiac Medical History: Denies: Coronary Artery Disease, Hypertension Pulmonary Medical History: Denies: Asthma, Chronic Obstructive Pulmonary Disease (COPD), Respiratory Failure Neurological Medical History: Denies: Seizures Endocrine Medical History: Denies: Diabetes Mellitus Type 1, Diabetes Mellitus Type 2, Hyperthyroidism, Hypothyroidism GI Medical History: Denies: Cirrhosis, Hepatitis Musculoskeltal Medical History: Denies: Arthritis, Gout Skin Medical History: Denies: Eczema, Psoriasis Psychiatric Medical History: Reports: Alcohol Dependency, Substance Abuse, Tobacco Dependency Hematology: Denies: Anemia, Bleeding Tendencies Infectious Medical History: Reports: Methicillin-Resistant Staph Aureus Past Surgical History Past Surgical History: Reports: Appendectomy Social History Information Source: Patient Lives with: Family Smoking Status: Current Some Day Smoker Electronic Cigarette use?: No Number of Years Smokin Last Time Smoked: LAST NIGHT Frequency of Alcohol Use: Occasional Hx Recreational Drug Use: Yes - Advance Directive Resuscitation Status: Full Code Family History Family History: Reviewed & Not Pertinent Parental Family History Reviewed: Yes Children Family History Reviewed: Yes Sibling(s) Family History Reviewed.: Yes Medication/Allergy Home Medications: No Home Medications 09/11/18 Allergies/Adverse Reactions: amoxicillin Allergy (Mild, Verified 07/13/17 08:03) Hives Review of Systems Constitutional: ABSENT: chills, fever(s), headache(s), weight gain, weight loss Eyes: ABSENT: visual disturbances Ears: ABSENT: hearing changes Cardiovascular: PRESENT: chest pain, dyspnea on exertion. ABSENT: edema, orthropnea, palpitations Respiratory: PRESENT: cough, dyspnea. ABSENT: hemoptysis Gastrointestinal: ABSENT: abdominal pain, constipation, diarrhea, hematemesis, hematochezia, nausea, vomiting Genitourinary: ABSENT: dysuria, hematuria Musculoskeletal: PRESENT: joint swelling - Rt ankle Integumentary: PRESENT: wounds - abrasions rt lat neck and right calf. ABSENT: rash Neurological: ABSENT: abnormal gait, abnormal speech, confusion, dizziness, focal weakness, syncope Psychiatric: ABSENT: anxiety, depression, homidical ideation, suicidal ideation Endocrine: ABSENT: cold intolerance, heat intolerance, polydipsia, polyuria Hematologic/Lymphatic: ABSENT: easy bleeding, easy bruising Physical Exam Vital Signs: Temp Pulse Resp BP Pulse Ox 98.2 F 101 H 18 105/66 98 01/07/20 09:39 01/07/20 09:39 01/07/20 09:39 01/07/20 09:39 01/07/20 09:39 Intake & Output 01/06/20 01/07/20 01/08/20 06:59 06:59 06:59 Intake Total 452 Balance 452 Weight 88.7 kg 86.7 kg General appearance: PRESENT: no acute distress, cooperative, disheveled, well- developed, well-nourished, other - fatigued Head exam: PRESENT: atraumatic, normocephalic Eye exam: PRESENT: conjunctiva pink, EOMI, PERRLA. ABSENT: scleral icterus Mouth exam: PRESENT: moist, tongue midline Teeth exam: PRESENT: poor dentation Respiratory exam: PRESENT: clear to auscultation rosmery, decreased breath sounds, symmetrical, unlabored, other - supplemental oxygen via NC. ABSENT: rales, rhonchi, wheezes Cardiovascular exam: PRESENT: RRR, +S1, +S2. ABSENT: diastolic murmur, rubs, systolic murmur Pulses: PRESENT: normal dorsalis pedis pul Vascular exam: PRESENT: normal capillary refill GI/Abdominal exam: PRESENT: normal bowel sounds, soft. ABSENT: distended, guarding, mass, organolmegaly, rebound, tenderness Rectal exam: PRESENT: deferred Extremities exam: PRESENT: full ROM, tenderness - Rt ankle. ABSENT: calf tenderness, clubbing, pedal edema Neurological exam: PRESENT: alert, awake, oriented to person, oriented to place, oriented to time, oriented to situation, CN II-XII grossly intact. ABSENT: motor sensory deficit Psychiatric exam: PRESENT: appropriate affect, normal mood. ABSENT: homicidal ideation, suicidal ideation Skin exam: PRESENT: dry, warm, other - scattered ecchymosis and abrasions. ABSENT: cyanosis, rash Results Laboratory Results: 01/07/20 05:15 01/07/20 05:15 01/07/20 01/07/20 01/07/20 05:15 05:15 07:00 WBC 17.4 H RBC 5.13 Hgb 15.2 Hct 45.1 MCV 88 MCH 29.6 MCHC 33.7 RDW 13.4 Plt Count 461 H Seg Neutrophils % 89.7 H Sodium 133.9 L Potassium 4.2 Chloride 98 Carbon Dioxide 20 L Anion Gap 16 BUN 19 Creatinine 0.98 Est GFR ( Amer) > 60 Glucose 99 Calcium 9.4 Total Bilirubin 0.6 AST 39 Alkaline Phosphatase 87 Total Protein 6.3 Albumin 3.6 Urine Color YELLOW Urine Appearance CLEAR Urine pH 5.0 Ur Specific [place] 1.009 Urine Protein NEGATIVE Urine Glucose (UA) NEGATIVE Urine Ketones NEGATIVE Urine Blood NEGATIVE Urine Nitrite NEGATIVE Ur Leukocyte Esterase NEGATIVE Urine WBC (Auto) 1 01/07/20 05:15 Troponin I 0.099 NT-Pro-B Natriuret Pep 86 Impressions: Chest X-Ray 01/07/20 04:48 IMPRESSION: Diffuse bilateral airspace opacities, worse within the left lung. This may be due to edema or pneumonia. copyright 2010 [employer]- All Rights Reserved Assessment and Plan - Diagnosis (1) Aspiration pneumonia Qualifiers: Aspiration pneumonia type: unspecified Laterality: bilateral Lung location: unspecified part of lung Qualified Code(s): J69.0 - Pneumonitis due to inhalation of food and vomit Is this a current diagnosis for this admission?: Yes Plan: Chest x-ray reveals bilateral opacities. Patient presented with acute respiratory failure secondary to narcotic overdose. Received multiple doses of Narcan. Nursing notes indicate that the patient vomited multiple times. He was then placed on BiPAP. On exam, he is now maintaining oxygen saturations in the mid 90s on supplemental oxygen via nasal cannula. Breath sounds are diminished throughout. WBC is elevated to 17. Blood cultures pending. Patient is admitted to [facility] on continuous cardiac telemetry. We will provide supplemental oxygen as needed to maintain saturations greater than 89%. He is empirically placed on IV clindamycin (penicillin allergy). Scheduled and as needed nebulizer treatments. Received furosemide and dexamethasone per ED provider. Encourage pulmonary toilet. Repeat chest x-ray in the morning. (2) Pulmonary edema Qualifiers: Chronicity: acute Qualified Code(s): J81.0 - Acute pulmonary edema Is this a current diagnosis for this admission?: Yes Plan: Chest x-ray reveals bilateral opacities. Patient presented with acute respiratory failure secondary to narcotic overdose. Received multiple doses of Narcan. Treated with IV furosemide and BiPAP per ED provider. We will monitor for evidence of respiratory depression. Consider additional doses of furosemide. Supplemental oxygen as needed to maintain saturations greater than 89%. Repeat chest x-ray in the morning. (3) Narcotic overdose Qualifiers: Encounter type: initial encounter Injury intent: accidental or unintentional Qualified Code(s): T40.601A - Poisoning by unspecified narcotics, accidental (unintentional), initial encounter Is this a current diagnosis for this admission?: Yes Plan: Patient denies recreational drug use. UDS confirms opiates. History of the same. Multiple IV pushes of Narcan per EMS and ED provider. Briefly on Narcan drip x2 hours. Monitor closely for respiratory depression. Narcan as needed. Mental health services have been consulted. (4) Acute respiratory failure with hypoxia Is this a current diagnosis for this admission?: Yes Plan: Secondary to #1&2 Management as above. (5) Right ankle sprain Qualifiers: Encounter type: initial encounter Is this a current diagnosis for this admission?: Yes Plan: Patient reports that he rolled his ankle approximately 1 week ago when jumping across a ditch. States that he had negative imaging done at [facility] last week. Slight edema and tenderness with range of motion noted. Analgesics as needed. Velcro stirrup splint. (6) Alcohol abuse Is this a current diagnosis for this admission?: Yes Plan: Serum EtOH 32. Patient reports binge drinking. Cessation encouraged. Daily folic acid and thiamine supplementation. Monitor for evidence of withdrawal. (7) Tobacco dependence Is this a current diagnosis for this admission?: Yes Plan: Smoking cessation encouraged. Nicotine replacement therapies provided. - Time Time Spent with patient: 35 or more minutes Medications reviewed and adjusted accordingly: Yes Anticipated Discharge Disposition: Home, Self Care Anticipated Discharge Timeframe: within 48 hours
[2020-01-07 10:33] LABS: ARTERIAL BLOOD BASE EXCESS -1.2 mmol/L; ARTERIAL BLOOD H2CO3 1.38 mmol/L (1.05-1.35); ARTERIAL BLOOD HCO3 24.7 mmol/L (20-24); ARTERIAL BLOOD O2 SATURATION 95.9 % (94-98); ARTERIAL BLOOD PCO2 45.7 mmHg (35-45); ARTERIAL BLOOD PH 7.35 (7.35-7.45); ARTERIAL BLOOD PO2 84.7 mmHg (80-100); ARTERIAL BLOOD TOTAL CO2 26.1 mmol/L (23-27)
[2020-01-07 10:40] LABS: ARTERIAL BLOOD FIO2 4L
[2020-01-07] MEDS ORDERED: DOCUSATE SODIUM 100 MG CAPSULE PO SCH (11:00)
[2020-01-07] MEDS: CLINDAMYCIN 600 MG/D5W RTU 600 MG/50 ML RTUPB IV SCH ×2 (11:28→18:35)
[2020-01-07] MEDS ORDERED: METRONIDAZOLE 500 MG/NS RTU 500 MG/100 ML RTUPB IV SCH (12:00)
[2020-01-07] MEDS ORDERED: ENOXAPARIN SODIUM INJ 40 MG/0.4 ML DISP.SYRIN SUBCUT SCH (12:00)
[2020-01-07] MEDS ORDERED: IPRATROPIUM/ALBUTEROL 0.5-2.5 MG/3 ML AMPUL NEB SCH (14:00)
[2020-01-07 18:35] VITALS: BP 114/62
--- NOTE | 2020-01-08 01:02 | EKG REPORT ---
SEVERITY:- ABNORMAL ECG - SINUS TACHYCARDIA BORDERLINE LEFT AXIS DEVIATION NONSPECIFIC T ABNORMALITIES, INFERIOR LEADS : Confirmed by: Diamond Dacosta MD 08-Jan-2020 01:01:17
[2020-01-08] MEDS ORDERED: FOLIC ACID 1 MG TABLET PO SCH (10:00)
[2020-01-08] MEDS ORDERED: THIAMINE HCL 100 MG TABLET PO SCH (10:00)
--- NOTE | 2020-01-08 13:11 | Left Against Medical Advice ---
Against Medical Advice Admission Date/Time: 01/07/20 07:38 Primary Care Provider: Date of Patient Emigration: 01/07/20 - Diagnosis: (1) Aspiration pneumonia Is this a current diagnosis for this admission?: Yes (2) Pulmonary edema Is this a current diagnosis for this admission?: Yes (3) Narcotic overdose Is this a current diagnosis for this admission?: Yes (4) Acute respiratory failure with hypoxia Is this a current diagnosis for this admission?: Yes (5) Right ankle sprain Is this a current diagnosis for this admission?: Yes (6) Alcohol abuse Is this a current diagnosis for this admission?: Yes (7) Tobacco dependence Is this a current diagnosis for this admission?: Yes - Summary: Summary: Please see Admission and Progress Notes as well. CESAR LANDON JR is a 34 M, who LEFT AGAINST MEDICAL ADVICE. The Patient was admitted on 01/07/20 07:38. Per H&P: CESAR LANDON JR is a 34 year old male with a past medical history of opiate, alcohol, and tobacco abuse w/ prior Opiate Overdose who presented to the emergency department today via EMS for AMS and acute respiratory failure that would improve briefly following Narcan push and ultimately requiring Narcan drip x2 hours. Patient did have multiple episodes of emesis this morning. At this time, patient is A&Ox4, though w/ continued fatigue and unable to recall events leading up to admission this morning. He does admit to heavily drinking alcohol with friends but denies recreational drug use. Patient emergency department revealed initial tachycardia, hypotension, tachypnea, and hypoxia. Laboratory evaluation revealed leukocytosis (WBC 17.4), thrombocytosis (PLT 461), unremarkable chemistry, elevated troponin of 0.099, negative urinalysis, UDS positive for opiates and a serum EtOH of 32. COVID testing pending. EKG showed sinus tachycardia and chest x-ray revealed diffuse bilateral airspace opacities; increased on the left. Patient has now been off the Narcan drip x2 hours; he is referred to the hospitalist service for further evaluation and management of the above stated complaints and findings. Course: Throughout the day, the patient continued to improve. He was weaned off of oxygen and is now maintaining saturations in the mid to high 90s on room air. He was empirically placed on Clindamycin for concern of possible aspiration pneumonia. Unfortunately, patient elected to discharge AGAINST MEDICAL ADVICE later that same evening.
== END 2020-01-07 19:14 | disposition left against medical advice (07) ==
LOC: ER 04:36 → EH 07:38 → INTOOBSV 07:38 → ICU 09:25
PROVIDERS: ADMIT Internal Medicine; ATTEND Registered Nurse
DX: J69.0 Pneumonitis due to inhalation of food and vomit (principal); J96.01 Acute respiratory failure with hypoxia; T40.601A Poisoning by unspecified narcotics, accidental (unintentional), initial encounter; S93.401A Sprain of unspecified ligament of right ankle, initial encounter; F10.10 Alcohol abuse, uncomplicated; R11.10 Vomiting, unspecified; R53.83 Other fatigue; X58.XXXA Exposure to other specified factors, initial encounter; R00.0 Tachycardia, unspecified; I95.9 Hypotension, unspecified; F17.210 Nicotine dependence, cigarettes, uncomplicated; Z20.828 Contact with and (suspected) exposure to other viral communicable diseases
CPT/HCPCS: 93005; 99285; 96375; 96365; 96366; 96368; 36415; 87040; 80307 ×4; 82803; 85025; 87635; 87077; 80053; 81001; 84484; 87186; 87150 ×26; 83880; 71045; 93010; 94640; G0378; L1902; J3490 ×2; J2310 ×2; J1650; J2405; J7030; J7040; J0456; S0028; J1100; C9803